=== PATIENT | male | born 1995 | race Two or more races ===

== ENCOUNTER 2021-12-08 21:52 | Outpatient (CLI) | payer MEDICAID | END 2021-12-08 21:53 | disposition critical access hospital (66) | LOC: EMS 21:52 | DX: R44.3 Hallucinations, unspecified (principal) | CPT/HCPCS: A0425; A0429; A0999 ==

== ENCOUNTER 2021-12-08 22:09 | Emergency (ER) | payer MEDICAID, OTHER ==
--- NOTE | 2021-12-08 22:59 | ED Physician Documentation ---
PD HPI ALTERED MENTAL STATUS - Stated complaint Stated Complaint: HALLUCINATIONS - Chief complaint Chief Complaint: MHE - History obtained from History obtained from: EMS, Other (patient does not contribute to my HPI/ROS due to not cooperative (see narrative below)) - History of Present Illness Timing - onset: Unknown Quality / character: Hallucinating Contributing factors: Substance abuse (per EMS report, patient told EMS that he had used "ice" tonight) - Additional information Additional information: BIBA from a [facility] in [place] for odd behavior, reportedly having visual and auditory hallucinations. Per EMS report, patient told them he had used ice a few hours ago. On my HPI, patient exhibits odd behavior and is uncooperative with HPI/ROS. He is awake and alert but makes no eye contact with me throughout this evaluation. I introduce myself and he says "I'm not going to talk to you". When I ask why he answers "because I don't want to and neither do you". He sits in silence for subsequent questions (such as when I ask what medications he takes, if he has any allergies). I ask if I can perform an exam and he says "fine" and allows a brief physical exam as documented below. I ask him if he would be willing to take some medication and he answers "hospitals are killing people, all hospitals are killing everyone". He then will answer none of my subsequent questions. Review of Systems Unable to obtain: AMS, Uncooperative PD PAST MEDICAL HISTORY - Past Medical History Other Past Medical History: unknown - Allergies Allergies/Adverse Reactions: Allergies Allergy/AdvReac Type Severity Reaction Status Date / Time No Known Drug Allergies Allergy Verified 12/08/21 22:15 PD ED PE NORMAL - Vitals Vital signs reviewed: Yes - General General: No acute distress, Well developed/nourished, Other (awake, alert, unable to ascertain orientation due to AMS and won't answer most of my quesionts as noted above) - HEENT HEENT: Atraumatic, PERRL, Moist mucous membranes - Neck Neck: Supple, no meningeal sign - Cardiac Cardiac: No murmur - Respiratory Respiratory: No respiratory distress, Clear bilaterally - Derm Derm: Normal color, Warm and dry PD ED PE EXPANDED - Cardiac Cardiac: Tachy (mild), Regular Rhythm - Psych Psych: Poor eye contact (does not make any eye contact throughout this evaluation) Results - Vitals Vitals: Oxygen O2 Source Room air - Labs Labs: Laboratory Tests 12/09/21 12/09/21 12/09/21 00:55 00:55 00:55 WBC 12.0 H RBC 5.03 Hgb 15.0 Hct 44.2 MCV 87.9 MCH 29.8 MCHC 33.9 RDW 13.5 Plt Count 218 MPV 10.9 Neut # (Auto) 9.9 H Lymph # (Auto) 1.0 L [place] # (Auto) 1.0 Eos # (Auto) 0.0 Baso # (Auto) 0.0 Absolute Nucleated RBC 0.00 Nucleated RBC % 0.0 Sodium 136 Potassium 3.8 Chloride 101 Carbon Dioxide 23 Anion Gap 12.0 BUN 15 Creatinine 0.7 Estimated GFR (MDRD) 134 Glucose 99 Calcium 10.2 Total Bilirubin 0.7 AST 31 ALT 22 Alkaline Phosphatase 48 Total Protein 8.1 Albumin 5.1 Globulin 3.0 Albumin/Globulin Ratio 1.7 Lipase 28 TSH 2.69 Salicylates < 6.0 Acetaminophen < 10 L Ethyl Alcohol < 5.0 PD MEDICAL DECISION MAKING - ED course Complexity details: reviewed results, re-evaluated patient, considered differential ED course: Odd behavior and does not contribute to HPI/ROS as noted above. Patient reportedly told EMS that he used ice tonight, presumably referring to crystal methamphetamine. Early in ED stay, he continues to have odd behavior; at one point he went into the cabinet under the sink in his room and closed the door although he came back out without argument. He came out of his room several times , sometimes to use the bathroom but mostly just standing in hallway or wandering down the hallway; he was redirectable to go back to his room. He also moved the stretcher around the room at one point. He did take PO zyprexa from the ED RN although this did not lead to sedation or decrease in odd behavior, and thus given 2mg PO lorazepam and he subsequently fell asleep and slept for remainder of my shift. Care of patient turned over to oncoming ED MD pending disposition. If he awakens and is not exhibiting odd behavior and is AAOx3 and appropriate, would likely be able to d/c at that time. Should his odd behavior continue, further action would likely depend on urine drug screen (urinated early in my shift but did not provide a sample, and did not urinate for the several subsequent hours of the rest of my shift). If his drug screen is negative for substances that could explain his odd behavior, then he would likely benefit from a telepsychiatric evaluation, as organic psychosis would become more likely. If he is positive for substance that could explain his behavior, such as methamphetamine, then he might only need to be observed until he is awake, alert, and appropriate enough in his mentation and actions to allow for discharge. Departure - Departure Disposition: 01 Home, Self Care Clinical Impression: Amphetamine abuse, Hallucinations, Homelessness Instructions: ED Drug Abuse General, ED Narcotic Abuse Comments: Thank you for allowing us to care for you today at [facility]. Please abstain from amphetamines in the future. If it anytime he have any new or worsening symptoms please not hesitate to return to the emergency department. Discharge Date/Time: 12/09/21 12:27
[2021-12-08] MEDS ORDERED: OLANZapine ODT 5 MG TABLET TL STA (23:13)
[2021-12-09] MEDS ORDERED: LORazepam 0.5 MG TABLET PO STA (00:46)
[2021-12-09 01:00] LABS: BASOPHILS % (AUTO) 0.2 %; EOSINOPHILS % (AUTO) 0.1 %; HCT - HEMATOCRIT 44.2 % (42.0-52.0); LYMPHOCYTES % (AUTO) 8.3 %; MEAN CORPUSCULAR HEMOGLOBIN 29.8 pg (27.0-31.0); MEAN CORPUSCULAR HGB CONC 33.9 g/dL (32.0-36.0); MEAN CORPUSCULAR VOLUME 87.9 fL (80.0-94.0); MEAN PLATELET VOLUME 10.9 fL (7.4-11.4); MONOCYTES % (AUTO) 8.6 %; NEUTROPHILS # (AUTO) 9.9 10^3/uL (1.5-6.6); NEUTROPHILS % (AUTO) 82.5 %; PLT - PLATELET COUNT 218 10^3/uL (130-450); RED BLOOD COUNT 5.03 10^6/uL (4.70-6.10); RED CELL DISTRIBUTION WIDTH 13.5 % (12.0-15.0)
[2021-12-09 01:15] LABS: ACETAMINOPHEN < 10 ug/mL (10-30); ALBUMIN 5.1 g/dL (3.2-5.5); ALBUMIN/GLOBULIN RATIO 1.7 (1.0-2.2); ALKALINE PHOSPHATASE 48 IU/L (42-121); ALT ALANINE AMINOTRANSFERASE 22 IU/L (10-60); AST ASPARTATE AMINOTRANSFERASE 31 IU/L (10-42); BILIRUBIN,TOTAL 0.7 mg/dL (0.2-1.0); BUN - BLOOD UREA NITROGEN 15 mg/dL (6-20); CALCIUM 10.2 mg/dL (8.5-10.3); CARBON DIOXIDE - CO2 23 mmol/L (21-32); CHLORIDE 101 mmol/L (101-111); CREATININE 0.7 mg/dL (0.6-1.2); ETOH - ETHANOL < 5.0 mg/dL; GFR - MDRD 134 (>89); GLUCOSE 99 mg/dL (70-100); LIPASE 28 U/L (22-51); POTASSIUM 3.8 mmol/L (3.5-5.0); SALICYLATE < 6.0 mg/dL; SODIUM 136 mmol/L (135-145); TOTAL PROTEIN 8.1 g/dL (6.7-8.2)
[2021-12-09] MEDS ORDERED: SODIUM CHLORIDE 0.9% 1,000 ML IV STA (04:23)
--- NOTE | 2021-12-09 08:46 | ED Physician Documentation ---
ED Addendum - Addendum Addendum: 12/09/21 08:44 Patient is 26-year-old male received a signout from off going physician. Evaluated dependently at bedside at approximately 0845 hrs. Patient found to be resting comfortably and in no acute distress. Was able to wake up, identify his name, date of , location and answered correctly date month and year.Endorsed for using methamphetamines which she states is not a typical occurrence. Had a generally nonfocal nonlateralizing neurologic exam however did seem somew hat somnolent. Was provided with meal tray. Reevaluated at 11:10 AM. Found to be resting comfortably. Was tolerating p.o. Denied suicidal or homicidal ideation. Was no longer demonstrating any d isorganized behavior. Requested a taxi voucher to help him get back to custodial. At this time will discharge. Encouraged abstinence from amphetamine and methamphetamineIn the future. Otherwise clear return precautions given prior to discharge. 12/09/21 11:10
[2021-12-09 12:02] VITALS: BP 118/75
== END 2021-12-09 12:27 | disposition home or self-care (01) ==
LOC: ED 22:09
DX: F15.129 Other stimulant abuse with intoxication, unspecified (principal); Z59.00 Homelessness unspecified
CPT/HCPCS: 36415; 80053; 80307; 80320; 80329; 83690; 84443; 85025; 99281; 99283; A9270